=== PATIENT | female | born 1990 | race Caucasian/White ===

== ENCOUNTER 2016-12-17 17:39 | Emergency (ER) | payer MEDICAID, OTHER ==
[~2016-12-17] VITALS: Wt 68.5 kg
[2016-12-17] MEDS ORDERED: ACETAMINOPHEN 325 MG TAB PO ONE (19:00)
[2016-12-17 19:19] LABS: ADD SCAN DIFF NO
[2016-12-17 19:21] LABS: BASOPHILS % 0.2 % (0.0-2.0); EOSINOPHILS # 0.2 10^3/ul (0.0-0.5); EOSINOPHILS % 1.3 % (0.0-7.0); HEMATOCRIT 36.8 % (37.0-47.0); HEMOGLOBIN 12.6 g/dl (12.0-16.0); LYMPHOCYTES # 2.7 10^3/ul (0.8-2.9); LYMPHOCYTES % 16.4 % (15.0-51.0); MEAN CORPUSCULAR HEMOGLOBIN 30.9 pg (29.0-33.0); MEAN CORPUSCULAR HGB CONC 34.2 g/dl (32.0-37.0); MEAN CORPUSCULAR VOLUME 90.2 fl (82.0-101.0); MEAN PLATELET VOLUME 10.1 fl (7.4-10.4); MONOCYTES % 6.2 % (0.0-11.0); NEUTROPHIL # 12.5 10^3/ul (1.6-7.5); NEUTROPHILS % 75.4 % (39.0-77.0); PLATELET COUNT 274 10^3/UL (140-415); RED BLOOD COUNT 4.08 10^6/ul (4.20-5.40); RED CELL DISTRIBUTION WIDTH 11.8 % (11.5-14.5); WHITE BLOOD COUNT 16.5 10^3/ul (4.8-10.8)
[2016-12-17 19:24] LABS: ADD UMIC YES; URINE BILIRUBIN (Dip) NEGATIVE (NEGATIVE); URINE BLOOD (Dip) NEGATIVE (NEGATIVE); URINE COLOR LT. YELLOW (YELLOW); URINE GLUCOSE (Dip) NEGATIVE (NEGATIVE); URINE KETONES (Dip) NEGATIVE (NEGATIVE); URINE LEUKOCYTE ESTERASE (Dip) 1+ (NEGATIVE); URINE NITRITE (Dip) NEGATIVE (NEGATIVE); URINE TOTAL PROTEIN (Dip) NEGATIVE (NEGATIVE); URINE UROBILINOGEN (Dip) 0.2 E.U./dL (0.1-1.0)
[2016-12-17 19:30] LABS: BACTERIA,URINE FEW; URINE RBCS 0-2 /HPF (0)
[2016-12-17 19:43] LABS: ALBUMIN 4.2 g/dl (3.3-4.9)
[2016-12-17 19:44] LABS: POTASSIUM 4.2 mmol/L (3.5-5.1)
[2016-12-17 19:46] LABS: CREATININE 0.58 mg/dl (0.44-1.00)
[2016-12-17 19:47] LABS: ALBUMIN/GLOBULIN RATIO 1.1; CALCIUM 9.6 mg/dl (8.4-10.2)
--- NOTE | 2016-12-17 19:56 | RADRPT ---
PROCEDURE: US OB. CLINICAL INDICATION: Right sided pelvic pain TECHNIQUE: Transabdominal and transvaginal views of the pelvis are available for review. COMPARISON: No prior studies are available for comparison. FINDINGS: Intrauterine gestational sac and pole are present with the following information: [place]-rump length:1.77 cm heart rate:166 bpm Gestational sac:3.13 cm Ultrasound estimated gestational age:8 weeks 2 days No evidence of subchorionic hemorrhage. No ovarian or adnexal mass lesion is seen. Right ovary measures 3.1 x 2.5 x 2.3 cm. Left ovary is m easured at 3.4 x 3 x 1.8 cm There is no free fluid. RPTAT:HJJR IMPRESSION: 1. Single live intrauterine with an estimated gestational age of 8 weeks 2 days, the neha mated date of delivery 07/27/2017. 2. No evidence of subchorionic hemorrhage. 3. Sonographically normal ovaries and adnexa. Physician Twyla Date Time Electronically viewed and signed by Physician Twyla on 12/17/2016 19:56 /
[2016-12-17] MEDS ORDERED: CEPH-443 PO (20:40)
[2016-12-17] MEDS ORDERED: ACET500C5 PO (20:40)
--- NOTE | 2016-12-17 20:54 | ERD ---
ER Documentation Chief Complaint Date/Time DATE: 12/17/16 TIME: 20:45 Chief Complaint RIGHT LOWER QUAD PAIN X3 N/V HPI 26-year-old female who is approximately 8 weeks presented ED was right pelvic pain 3 days. Patient stated that the pain comes and goes is burning- like. She was sent here by her OB clinic to rule out appendicitis versus ectopic . Denies fever or chills. Denies vaginal bleeding. Patient reports frequent vomiting due to that had not changed. Denies diarrhea. She has not taken any pain medications at home. Patient is SAB 1, LMP 10/21/2016. ROS All systems reviewed and are negative except as per history of present illness. Medications Home Meds Active Scripts Acetaminophen* (Tylophen*) 500 Mg Capsule, 1 CAP PO Q6H Y for PAIN AND OR ELEVATED TEMP, #20 CAP Prov:LEE BLACKWELL. IT TECHNICAL SUPPORT SPECIALIST 12/17/16 Cephalexin* (Keflex*) 500 Mg Capsule, 500 MG PO BID for 7 Days, CAP Prov:LEE BLACKWELL. IT TECHNICAL SUPPORT SPECIALIST 12/17/16 Allergies Allergies: Coded Allergies: No Known Allergy (Unverified , 12/17/16) PMhx/Soc Medical and Surgical Hx: pt denies Medical Hx, pt denies Surgical Hx Hx Alcohol Use: No Hx Substance Use: No Hx Tobacco Use: No Smoking Status: Never smoker Physical Exam Vitals Vital Signs Date Time Temp Pulse Resp B/P Pulse Ox O2 Delivery O2 Flow Rate FiO2 12/17/16 21:23 64 16 119/73 99 Room Air 12/17/16 17:41 98.0 79 18 119/72 99 Physical Exam General: Well-developed, well-nourished, conscious and coherent, in no distress Skin: Warm and dry without rash, good texture and turgor Head: Normocephalic without evidence of trauma Eyes: Sclera and conjunctivae normal; pupils equal, round, and reactive to light; extraocular movements are intact Ears: Canals are patent. Tympanic membranes are clear Nose/Face: Without rhinorrhea Mouth/throat: Mucous membranes are moist. Posterior pharynx clear without erythema or exudates Neck: Supple without meningismus or adenopathy. Carotids are equal. Trachea midline. No bruits or JVD Chest: Normal AP diameter. Good expansion without retractions. Nontender. Lungs are clear to auscultate bilaterally with good tidal volume Heart: Regular rate and rhythm. No murmur, rub, or gallops heard Abdomen: Soft and nontender without masses, guarding, or rebound. Bowel sounds are active. No hepatosplenomegaly. No McBurney point tenderness. Back: Without spinal or CVA tenderness Pelvis: Suprapubic tenderness. Extremities: Full range of motion. Good strength bilaterally. No clubbing, cyanosis, or edema. Peripheral pulses are intact. Sensation intact Neuro: Alert and oriented 4, GCS 15. Cranial nerves grossly intact. Motor and sensory exams nonfocal. Moves all extremities. Speech clear. Gait normal Result Diagram: 12/17/16191412/17/161914 Results 24 hrs Laboratory Tests Test 12/17/16 19:15 White Blood Count 16.510^3/ul Red Blood Count 4.0810^6/ul Hemoglobin 12.6g/dl Hematocrit 36.8% Mean Corpuscular Volume 90.2fl Mean Corpuscular Hemoglobin 30.9pg Mean Corpuscular Hemoglobin Concent 34.2g/dl Red Cell Distribution Width 11.8% Platelet Count 56424^3/UL Mean Platelet Volume 10.1fl Neutrophils % 75.4% Lymphocytes % 16.4% Monocytes % 6.2% Eosinophils % 1.3% Basophils % 0.2% Nucleated Red Blood Cells % 0.0/100WBC Neutrophils # 12.510^3/ul Lymphocytes # 2.710^3/ul Monocytes # 1.010^3/ul Eosinophils # 0.210^3/ul Basophils # 0.010^3/ul Nucleated Red Blood Cells # 0.010^3/ul Urine Color LT. YELLOW Urine Clarity CLEAR Urine pH 5.5 Urine Specific [place] 1.010 Urine Ketones NEGATIVE Urine Nitrite NEGATIVE Urine Bilirubin NEGATIVE Urine Urobilinogen 0.2 E.U./dL Urine Leukocyte Esterase 1+ Urine Microscopic RBC 0-2/HPF Urine Microscopic WBC 2-5/HPF Urine Epithelial Cells MODERATE Urine Bacteria FEW Urine Hemoglobin NEGATIVE Urine Glucose NEGATIVE% Urine Total Protein NEGATIVE Sodium Level 140mmol/L Potassium Level 4.2mmol/L Chloride Level 103mmol/L Carbon Dioxide Level 24mmol/L Anion Gap 17 Blood Urea Nitrogen 8mg/dl Creatinine 0.58mg/dl Glucose Level 90mg/dl Calcium Level 9.6mg/dl Total Bilirubin 0.0mg/dl Direct Bilirubin 0.00mg/dl Indirect Bilirubin 0.0mg/dl Aspartate Amino Transf (AST/SGOT) 66IU/L Alanine Aminotransferase (ALT/SGPT) 122IU/L Alkaline Phosphatase 49IU/L Total Protein 8.0g/dl Albumin 4.2g/dl Globulin 3.80g/dl Albumin/Globulin Ratio 1.10 Beta HCG, Quantitative 520702.0mIU/ml Current Medications Medications (Trade) Dose Ordered Sig/Bruce Route PRN Reason Start Time Stop Time Status Last Admin Dose Admin Acetaminophen (Tylenol Tab) 650 mg ONCE ONCE PO 12/17/16 19:00 12/17/16 19:01 DC 12/17/16 19:01 PROCEDURE: US OB. CLINICAL INDICATION: Right sided pelvic pain TECHNIQUE: Transabdominal and transvaginal views of the pelvis are available for review. COMPARISON: No prior studies are available for comparison. FINDINGS: Intrauterine gestational sac and pole are present with the following information: [place]-rump length: 1.77 cm heart rate: 166 bpm Gestational sac: 3.13 cm Ultrasound estimated gestational age: 8 weeks 2 days No evidence of subchorionic hemorrhage. No ovarian or adnexal mass lesion is seen. Right ovary measures 3.1 x 2.5 x 2.3 cm. Left ovary is measured at 3.4 x 3 x 1.8 cm There is no free fluid. RPTAT:HJJR IMPRESSION: 1. Single live intrauterine with an estimated gestational age of 8 weeks 2 days, the estimated date of delivery 07/27/2017. 2. No evidence of subchorionic hemorrhage. 3. Sonographically normal ovaries and adnexa. Physician Twyla Date Time Electronically viewed and signed by Physician Twyla on 12/17/2016 19:56 JR/ CC: LEE BLACKWELL IT TECHNICAL SUPPORT SPECIALIST Procedures/MDM ED course: CBC: Slight leukocytosis with WBC at 16.5, otherwise normal. CMP: Slightly elevated AST and ALT at 66 and 122, respectively, otherwise unremarkable. Beta hC UA: 1+ leukocyte, otherwise negative. Type & RH: A+ OB US: 1. Single live intrauterine with an estimated gestational age of 8 weeks 2 days, the estimated date of delivery 07/27/2017. 2. No evidence of subchorionic hemorrhage. 3. Sonographically normal ovaries and adnexa. Medical Decision Making: Well-appearing 26-year-old female who is approximately 8 weeks presented ED was right lower quadrant abdominal pain 3 days. OB ultrasound shows a single live intrauterine without adnexal mass. Low suspicion for ectopic . Patient is afebrile, does not have any McBurney point tenderness. Low suspicion for acute appendicitis. UA shows sign of urinary tract infection, I will treat her UTI with Keflex. She does not have any CVA tenderness. I doubt pyelonephritis. It is uncertain the cause of her pelvic pain at this time. Patient advised to follow-up with her OB in 2-3 days. Patient appears well, stable for discharge and outpatient management. Medical decision making shared with patient and family. Education provided to patient and family. Patient and family expressed understanding of the plan. Medications on discharge: Tylenol, Keflex. Follow-up: Primary care provider in 2-3 days or return to ED if worse. Departure Diagnosis: Primary Impression: UTI (urinary tract infection) during Trimester: first trimester Qualified Code: O23.41 - UTI (urinary tract infection) during , first trimester Additional Impression: Pelvic pain complicating Condition: Good Patient Instructions: Understanding Urinary Tract Infections (UTIs), Pelvic Pain In : Unclear (2-3 Trimester) [facility] Usted se wright hecho un examen mdico de control que le indica que no est en cyndi condicin que requiera tratamiento urgente en el Departamento de Emergencia. Un estudio ms profundo y el tratamiento de de anda condicin pueden esperar sin ningn riesgo hasta que usted sea atendida/o en el consultorio de de anda mdico o cyndi cl jair. Es responsabilidad suya arreglar cyndi frandy para el seguimiento del americo. MANEJO DE CONDICIONES NO URGENTES EN EL FUTURO 1) Si usted tiene un mdico de atencin primaria: Usted debera llamar a de anda mdico de atencin primaria antes de venir al departamento de emergencia. Despus de las horas de consultorio, de anda doctor o de anda asociado/a est disponible por telfono. El mdico o enfermero de adi en el servicio telefnico puede asesorarle por chanelle medio para atender el problema, o americo contrario se puede programar cyndi frandy. 2) Si usted no tiene un mdico de atencin primaria: Llame al mdico o clnica de referencia que aparece abajo rupali las horas de consultorio para hacer cyndi frandy para que le vean. CLINICAS: [facility] [phone] [address] [facility]., [facility] [phone] [address] [facility]. [facility] [phone] [address] [facility]. [facility] [phone] [address] [facility]. [facility] [phone] [address] [facility] [phone] [employer] SERVICE DESK TECHNICIAN [place] [address] [facility] [address] [place], [place] [phone] OFFICE FAX TONIO CASTILLO [address] [place] [place] [phone] [address] [place], [place] [phone] [address] [place] [address] [facility], [address] [address] [address] [address] [facility] [place] [phone] [facility] [address] [place], [place] [address] [address] [facility] [id number] - LESLIE FREDERICK [address], [facility] [phone] [address] ROSALES, [place] [address] [facility]. [address], [facility] [address] [address], [facility] [address] [place] [address] Additional Instructions: Call your primary care doctor TOMORROW for an appointment during the next 2-3 days.See the doctor sooner or return here if your condition worsens before your appointment time. LEE BLACKWELL NP December 17, 2016 20:54
[2016-12-17 21:23] VITALS: BP 119/73; PULSE 64; RESP 16
== END 2016-12-17 21:24 | disposition home or self-care (01) ==
LOC: FTE 17:39
DX: O23.41 Unspecified infection of urinary tract in pregnancy, first trimester (principal); R10.2 Pelvic and perineal pain; Z3A.08 8 weeks gestation of pregnancy
CPT/HCPCS: 76801; 80053; 81001; 84702; 85025; 86900; 86901; Z7610; 36415